=== PATIENT | female | born 1970 | race Caucasian/White ===

== ENCOUNTER 2019-01-04 05:10 | Emergency (ER) | payer BC ==
[~2019-01-04] VITALS: Ht 162.6 cm; Wt 136.1 kg
[2019-01-04 05:13] VITALS: Ht 162.6 cm; Wt 136.1 kg
[2019-01-04] MEDS ORDERED: COZAAR25 MG (05:14)
[2019-01-04] MEDS ORDERED: METOPROLOL TART25 MG (05:14)
[2019-01-04] MEDS ORDERED: HYDROCODON-ACE1 EAC2 PO (05:46)
[2019-01-04] MEDS ORDERED: CYCLOBENZAPRINE10 MG PO (05:46)
[2019-01-04 06:35] VITALS: BP 149/111
== END 2019-01-04 06:36 | disposition home or self-care (01) ==
LOC: D.ER 05:10
DX: M51.17 Intervertebral disc disorders with radiculopathy, lumbosacral region (principal)